=== PATIENT | male | born 1985 | race Caucasian/White ===

== ENCOUNTER 2017-06-17 21:14 | Emergency (ER) | payer SELFPAY ==
[~2017-06-17] VITALS: Ht 170.2 cm; Wt 84.4 kg
[2017-06-17 21:19] VITALS: Ht 170.2 cm; Wt 84.4 kg
[2017-06-17 23:22] VITALS: BP 155/71
== END 2017-06-17 23:22 | disposition home or self-care (01) ==
LOC: ED 21:14
DX: S61.217A Laceration without foreign body of left little finger without damage to nail, initial encounter (principal); W26.8XXA Contact with other sharp object(s), not elsewhere classified, initial encounter; Y93.89 Activity, other specified; Y92.89 Other specified places as the place of occurrence of the external cause; Y99.8 Other external cause status; I10 Essential (primary) hypertension
CPT/HCPCS: 90715; J2001

== ENCOUNTER 2017-06-21 20:30 | Emergency (ER) | payer SELFPAY ==
[~2017-06-21] VITALS: Ht 162.6 cm; Wt 84.4 kg
[2017-06-21 20:43] VITALS: Ht 162.6 cm; Wt 84.4 kg
[2017-06-21 21:24] VITALS: BP 122/69
== END 2017-06-21 21:59 | disposition home or self-care (01) ==
LOC: ED 20:30
DX: S61.217D Laceration without foreign body of left little finger without damage to nail, subsequent encounter (principal); X58.XXXD Exposure to other specified factors, subsequent encounter

== ENCOUNTER 2017-06-26 20:39 | Emergency (ER) | payer SELFPAY ==
[~2017-06-26] VITALS: Ht 170.2 cm; Wt 84.4 kg
[2017-06-26 20:52] VITALS: Ht 170.2 cm; Wt 84.4 kg
[2017-06-26 21:52] VITALS: BP 115/62
== END 2017-06-26 21:52 | disposition home or self-care (01) ==
LOC: ED 20:39
DX: S61.218D Laceration without foreign body of other finger without damage to nail, subsequent encounter (principal); L03.012 Cellulitis of left finger; W26.0XXD Contact with knife, subsequent encounter